=== PATIENT | male | born 1945 | race Caucasian/White ===

== ENCOUNTER 2021-05-06 14:37 | Emergency (ER) | payer OTHER, MEDICARE ==
[~2021-05-06 14:37] MED LIST: ASPIRIN CHEWABL81 MG PO; CARAFATE1 GM PO; NITROSTAT0.4 MG SL
[2021-05-06 15:29] LABS: RED BLOOD COUNT 4.92 M/UL (4.20-5.50); WHITE BLOOD COUNT 6.6 K/UL (4.5-11.0)
[2021-05-06 15:55] LABS: BUN/CREATININE RATIO 14 (0-10)
[2021-05-06] MEDS ORDERED: CEPHALEXIN500 M1 PO (19:07)
== END 2021-05-06 19:35 | disposition home or self-care (01) ==
LOC: ER1 14:37
PROVIDERS: Physician Assistant
DX: R60.0 Localized edema (principal); N39.0 Urinary tract infection, site not specified; F17.200 Nicotine dependence, unspecified, uncomplicated; E78.5 Hyperlipidemia, unspecified; E11.9 Type 2 diabetes mellitus without complications; Z20.822 Contact with and (suspected) exposure to COVID-19; I10 Essential (primary) hypertension; J44.9 Chronic obstructive pulmonary disease, unspecified; Z88.0 Allergy status to penicillin
CPT/HCPCS: 70450; 71045; 80053; 81001; 82550; 82553; 83605; 83874; 83880; 84484; 85025; 93005; 93970; 96374; 96375; 99285; J0696; J1940; U0002